=== PATIENT | female | born 1960 | race Caucasian/White ===

== ENCOUNTER 2018-02-02 06:35 | Day surgery (SDC) | payer OTHER ==
[2018-02-01 10:38] VITALS: BMI 30.9
[2018-02-02] MEDS ORDERED: Bupivacaine PF 0.5% 30 ML VIAL ONE (07:37)
[2018-02-02] MEDS ORDERED: Betamet Acet/Betamet Na Ph 30 MG/5 ML VIAL ONE (07:37)
[2018-02-02] MEDS ORDERED: Bacitracin Zinc Ointment 30 gm TUBE ONE (07:37)
[2018-02-02] MEDS ORDERED: CEFAZOLIN 2 GM/50 ML BAG ONE (07:45)
[2018-02-02 07:56] LABS: #Eosinphils 0.2 thou/uL (0.0-0.7); #Monocytes 0.5 thou/uL (0.11-0.59); #Neutrophils 3.1 thou/uL (1.40-6.50); %Basophils 0.7 % (0.0-1.0); %Eosinophils 2.8 % (0.0-10.0); %Lymphocytes 34.5 % (21.0-51.0); %Monocytes 7.9 % (0.0-10.0); %Neutrophils 54.1 % (42.0-75.0); Hemoglobin 13.1 g/dL (12.0-16.0); Mean Corpuscular HGB CONC 34.2 g/dL (32.0-36.0); Mean Corpuscular Hemoglobin 33.5 pg (27.0-31.0); Mean Corpuscular Volume 97.9 fL (78.0-98.0); Mean Platelet Volume 6.7 fL (7.4-10.4); Platelet Count 338 thou/uL (130-400); RBC Distribution Width 11.2 % (11.5-14.5); Red Blood Cell (RBC) Count 3.92 mill/uL (4.20-5.40); White Blood Cell (WBC) Count 5.8 thou/uL (4.8-10.8)
[2018-02-02] MEDS ORDERED: Fentanyl 100 MCG/2 ML VIAL ONE (08:26)
[2018-02-02] MEDS ORDERED: Midazolam HCl 2 mg/2 ml Vial ONE (08:26)
[2018-02-02] MEDS ORDERED: Ketorolac Tromethamine 30 MG/ML VIAL ONE (09:22)
--- NOTE | 2018-02-03 00:32 | OP ---
DATE OF PROCEDURE: 02/02/2018 ANESTHESIOLOGIST: Dr. Acosta. anesthesia local with MAC. Total local given 20 mL of 0.5% Marcaine. PREOPERATIVE DIAGNOSES: 1. Tenosynovitis, abductor pollicis longus tendon. 2. First dorsal compartment de Quervain, tenovaginitis. PROCEDURE PERFORMED: 1. First dorsal compartment release for tenovaginitis. 2. First dorsal compartment abductor pollicis longus, radical extensor tenosynovectomy. SPECIMEN: Tenosynovium from the abductor pollicis longus. FINDINGS: 1. Very tight first dorsal compartment neck. 2. Three sleeves of abductor pollicis longus with separate sleeve of the extensor pollicis brevis. TOURNIQUET TIME: 12 minutes. ESTIMATED BLOOD LOSS: 10 mL. INDICATIONS: Failed conservative treatment including injections, splint and therapy. DESCRIPTION OF PROCEDURE: After successful anesthesia listed above, the limb was prepped and draped. A 10 mL of Marcaine given before prep and drape, and then at the time of completion of prep and drape and time-out, there was no further palpable tenderness. The incision was made a zigzag incision 2 cm centered over the first dorsal compartment prominence. We carried through skin and subcutaneous tissue, identified both sets of radial nerve branches and protected them from the center of field. There was a very tight retinaculum that was released in junction of the dorsal one-third to the mid third with a [place] blade. There was marked tenosynovial edema. We then began a tenosynovectomy and discovered that there were three sleeves of the abductor pollicis longus and one of the extensor pollicis brevis. Each one underwent radical extensor tenosynovectomy for abductor pollicis longus. Released the tourniquet, obtained hemostasis, resected a dorsal 1 mm of the thickened first dorsal compartment neck in addition to prevent recurrence, nerves were intact. We placed 3 mL of Celestone on them. We released the tourniquet and obtained hemostasis. Closed the wound in interrupted 4-0 nylon mattress pattern and gave the last 10 mL of Marcaine in the tom-incisional technique. No epinephrine. The bulky dressing was applied with a thumb spica splint. The patient left the operating room without evidence of anesthetic or operative complication. Job ID: [id number]
== END 2018-02-02 11:14 | disposition home or self-care (01) ==
LOC: SDC 06:35
PROVIDERS: ATTEND Orthopaedic Surgery Hand Surgery
PROC: 0LB50ZZ Excision of Right Lower Arm and Wrist Tendon, Open Approach (ICD-10-PCS; principal; 2018-02-02)
DX: M65.4 Radial styloid tenosynovitis [de Quervain] (principal); I10 Essential (primary) hypertension; F41.9 Anxiety disorder, unspecified; F32.9 Major depressive disorder, single episode, unspecified; Z79.899 Other long term (current) drug therapy; Z98.890 Other specified postprocedural states
CPT/HCPCS: 36415; 85025; 85652; 88305; J0702; J1885; J2250; J3010; S0020